=== PATIENT | male | born 1975 | race Caucasian/White ===

== ENCOUNTER 2017-08-27 18:14 | Emergency (ER) | payer OTHER ==
[~2017-08-27] VITALS: Ht 170.2 cm; Wt 90.7 kg
[2017-08-27] MEDS: ALBUTEROL SULFATE 2.5 MG/3 ML NEBU NEB ONE (18:38)
[2017-08-27] MEDS: ACETAMINOPHEN ES 500 MG TABLET PO ONE (18:46)
[2017-08-27] MEDS: IBUPROFEN 800 MG TABLET PO ONE (18:46)
[2017-08-27] MEDS ORDERED: ALBUTEROL SULFATE 2.5 MG/3 ML NEBU ONE (18:52)
[2017-08-27] MEDS ORDERED: ACETAMINOPHEN ES 500 MG TABLET ONE (18:59)
[2017-08-27] MEDS ORDERED: IBUPROFEN 800 MG TABLET ONE (18:59)
--- NOTE | 2017-08-27 19:36 | NUR ---
Patient discharged to home in stable conditon. Written and verbal after care instructions given. Patient verbalizes understanding of instructions.
[2017-08-27 19:37] VITALS: BP 129/77
== END 2017-08-27 19:38 | disposition home or self-care (01) ==
LOC: ER 18:15
DX: J20.8 Acute bronchitis due to other specified organisms (principal); J02.8 Acute pharyngitis due to other specified organisms; B97.89 Other viral agents as the cause of diseases classified elsewhere; F17.200 Nicotine dependence, unspecified, uncomplicated; Z90.49 Acquired absence of other specified parts of digestive tract
CPT/HCPCS: 93005; 94640; 99283; A4663

== ENCOUNTER 2018-10-30 21:28 | Emergency (ER) | payer OTHER ==
[~2018-10-30] VITALS: Ht 172.7 cm; Wt 90.7 kg
[2018-10-30] MEDS ORDERED: IBUPROFEN 600 MG TABLET ONE (23:40)
[2018-10-30] MEDS ORDERED: IBUPROFEN 600 MG TABLET PO ONE (23:45)
--- NOTE | 2018-10-31 00:33 | NUR ---
Patient discharged to home in stable conditon. Written and verbal after care instructions given. Patient verbalizes understanding of instructions. OK to d/c per Dr. Rodriguez, patient ambulated out of dept with steady gait.
[2018-10-31 00:34] VITALS: BP 154/93
== END 2018-10-31 00:34 | disposition home or self-care (01) ==
LOC: ER 21:30
DX: M54.12 Radiculopathy, cervical region (principal); M54.6 Pain in thoracic spine; F17.290 Nicotine dependence, other tobacco product, uncomplicated; Z90.49 Acquired absence of other specified parts of digestive tract
CPT/HCPCS: 72125; A4663